=== PATIENT | male | born 1960 | race Hispanic/Latino ===

== ENCOUNTER 2019-08-01 14:34 | Emergency (ER) | payer BC, OTHER ==
[~2019-08-01] VITALS: Ht 167.6 cm; Wt 74.8 kg
--- OUTSIDE RECORDS SUMMARY | 2019-08-01 14:37 | XMS REPORT | Continuity of Care Document ---
Author Author [facility] Organization [facility] Address [address] [place] [address] [place] [id number] Phone Unavailable Care Team Providers Care Wedger Machine Name Role Phone Unavailable Unavailable Problems This patient has no known problems. Allergies, Adverse Reactions, Alerts This patient has no known allergies or adverse reactions. Medications This patient has no known medications. Procedures This patient has no known procedures. Results This patient has no known results.
[2019-08-01] MEDS ORDERED: KETOROLAC TROMETHAMINE 60 MG/2 ML VIAL IM ONE (15:45)
[2019-08-01] MEDS ORDERED: AZITHROMYCIN 250 MG TAB PO ONE (16:00)
[2019-08-01] MEDS ORDERED: AZITHROMYCIN 250 MG TAB ONE (16:11)
--- NOTE | 2019-08-01 16:41 | Diagnostic Imaging Report ---
EXAMINATION: CXR 1 W - HOP INDICATION: Cough. COMPARISON: None FINDINGS: TUBES and LINES: None. LUNGS: Lungs are mildly hyperinflated. There are patchy opacities in the right mid and bilateral lower lung zones. Linear opacities in the right greater than left lower lung zones. PLEURA: No pleural effusion or pneumothorax. HEART AND MEDIASTINUM: The cardiomediastinal silhouette is unremarkable. BONES AND SOFT TISSUES: No acute osseous lesion. Soft tissues are unremarkable. UPPER ABDOMEN: No free air under the diaphragm. IMPRESSION: Findings compatible with pneumonia (including viral pneumonia) in the setting of cough. Recommend follow-up chest radiograph in 6-8 weeks to assess for resolution. Signed by: Dr. Galina Montiel MD on 08/01/2019 4:38 PM
[2019-08-01] MEDS ORDERED: ACETAMINOPHEN 325 MG TAB PO ONE (17:00)
[2019-08-01] MEDS ORDERED: CEFTRIAXONE SOD 1 GM VIAL IM ONE (17:00)
[2019-08-01] MEDS ORDERED: PREDNISONE20 MG PO (18:03)
[2019-08-01] MEDS ORDERED: PROAIR HFA INH8.5 GM PO (18:03)
[2019-08-01] MEDS ORDERED: BROMFED DM COU118 ML PO (18:03)
[2019-08-01] MEDS ORDERED: AZITHROMYCIN500 MG PO (18:03)
[2019-08-01] MEDS ORDERED: ALBUTEROL2.5 MG/3 M NEB (18:03)
[2019-08-01] MEDS ORDERED: CEFDINIR300 MG PO (18:04)
--- NOTE | 2019-08-01 18:05 | Emergency Department Note ---
History of Present Illnes History of Present Illness Chief Complaint: bodyaches History of Present Illness This is a 59 year old male. was doing well prior to this. then 3 days ago bodyaches, cough, f/c, wheezing Historian: Patient Arrival Mode: Car History limited by: condition of the patient (normal) [place] Required: No Onset (how long ago): day(s) (3) Location: n/a Quality: aches Severity: moderate Onset quality: gradual Duration (how long): day(s) (3) Timing of current episode: constant Progression: waxing and waning Chronicity: new Context: recent illness, recent surgery, recent immobilization, recent travel, trauma/injury, new medications, hx of DVT/PE, non-compliance w/ medications Relieving factors: none Exacerbating factors: none Associated symptoms: cough (wheezing) Treatments prior to arrival: none Past Medical/Family History Physician Review I have reviewed the patient's past medical and family history. Any updates have been documented here. Past Medical History Recent Fever: Yes Clinical Suspicion of Infectio: No New/Unexplained Change in Ment: No Past Medical History: None Past Surgical History: None Social History Smoking Cessation: Never Smoker Counseling Performed: No Alcohol Use: Daily Any Illegal Drug Use: No TB Exposure/Symptoms: No Physically hurt or threatened: No Family History Family history of heart diseas: No Other Last Tetanus: UNK Any Pre-Existing Lines (PICC,: No Is patient up to date on immun: Yes Last Flu: NONE Last Pneumovax: NONE Review of Systems Review of Systems Constitutional: as per HPI EENTM: no symptoms Cardiovascular: no symptoms Respiratory: as per HPI Gastrointestinal: no symptoms Genitourinary: no symptoms Musculoskeletal: no symptoms Neurological: no symptoms Psychological: no symptoms Endocrine: no symptoms Hematological/Lymphatic: no symptoms Review of other systems All other systems reviewed and negative. Physical Exam Related Data Allergies: Coded Allergies: No Known Allergies (Unverified , 08/01/19) Triage Vital Signs Vital Signs Date Time Temp Pulse Resp B/P (MAP) Pulse Ox O2 Delivery O2 Flow Rate FiO2 08/01/19 14:52 100.0 94 18 126/75 93 Vital signs reviewed: Yes Physical Exam CONSTITUTIONAL Constitutional: well-developed, well-nourished HENT HENT: normocephalic, atraumatic, oropharynx clear/moist, nose normal HENT L/R: left ext ear normal, right ext ear normal EYES Eyes: PERRL, conjunctivae normal NECK Neck: ROM normal PULMONARY Pulmonary: effort normal, other (forced expiratory wheezes) CARDIOVASCULAR Cardiovascular: regular rhythm, heart sounds normal, capillary refill normal, normal rate GASTROINTESTINAL Abdominal: soft, nontender, bowel sounds normal GENITOURINARY Genitourinary: exam deferred SKIN Skin: warm, dry MUSCULOSKELETAL Musculoskeletal: ROM normal NEUROLOGICAL Neurological: alert, oriented x 3, no gross motor or sensory deficits PSYCHOLOGICAL Psychological: mood/affect normal, judgement normal Results Laboratory Lab results reviewed: Yes (influenza negative, covid +) Imaging Imaging results reviewed: Yes (cxr wnl) Critical Care Time Subsequent provider I assumed direction of critical care for this patient from another provider of my specialty. Assessment & Plan Reassessment Reassessment i was notified by lab that pt was covid + . called the pt at [phone] and left a message to call back so i can give covid results. Assessment & Plan Final Impression: (1) Body aches (2) Pneumonia (3) Reactive airway disease (4) COVID-19 Assessment & Plan albuterol, azithromycin, omnicef, prednisone, bromfed Depart Disposition: HOME, SELF-CARE Last Vital Signs Date Time Temp Pulse Resp B/P (MAP) Pulse Ox O2 Delivery O2 Flow Rate FiO2 08/01/19 14:52 100.0 94 18 126/75 93 Home Meds Active Scripts Cefdinir (OMNICEF) 300 Mg Capsule, 300 MG PO Q12H, #20 CAP Prov:CYNTHIA ORTEGA 08/01/19 Albuterol Sulfate (ALBUTEROL SULFATE) 2.5 Mg/3 Ml Vial.neb, 5 ML NEB Q4HR PRN for COUGH, #120 UNIT 1 Refill prn cough, wheezing, shortness of breath Prov:CYNTHIA ORTEGA 08/01/19 D-Methorphan Hb/P-Epd Hcl/Bpm (BROMFED DM COUGH SYRUP) 118 Ml Syrup, 10 ML PO Q4HR PRN for COUGH, #240 ML PRN COUGH(USE INHALER FIRST), CONGESTION, ALLERGY SYMPTOMS Prov:CYNTHIA ORTEGA 08/01/19 Albuterol Sulf* (PROAIR HFA INHALER*) 8.5 Gm Inh, 2 INH PO Q4HR PRN for COUGH, #1 INH PRN COUGH, WHEEZING, SHORTNESS OF BREATH// DISPENSE WITH SPACER Prov:CYNTHIA ORTEGA 08/01/19 Prednisone (PREDNISONE) 20 Mg Tab, 60 MG PO DAILY, #15 TAB Prov:CYNTHIA ORTEGA 08/01/19 Azithromycin (AZITHROMYCIN) 500 Mg Tablet, 500 MG PO DAILY for 4 Days, #4 TAB Prov:CYNTHIA ORTEGA 08/01/19 Medications in the ED Ketorolac Tromethamine 60 mg ONCE ONCE IM Last administered on 08/01/19at 16:18; Admin Dose 60 MG; Start 08/01/19 at 15:45; Stop 08/01/19 at 16:17; Status DC Ceftriaxone Sodium 1 gm ONCE ONCE IM Last administered on 08/01/19 16:20; Admin Dose 1 GM; Start 08/01/19 at 17:00; Stop 08/01/19 at 17:01; Status DC Azithromycin 500 mg ONCE ONCE PO Last administered on 08/01/19at 16:19; Admin Dose 500 MG; Start 08/01/19 at 16:00; Stop 08/01/19 at 16:01; Status DC Acetaminophen 975 mg ONCE ONCE PO Last administered on 08/01/19 16:19; Admin Dose 975 MG; Start 08/01/19 at 17:00; Stop 08/01/19 at 17:01; Status DC Azithromycin 500 mg STK-MED ONCE .ROUTE ; Start 08/01/19 at 16:11; Stop 08/01/19 at 16:09; Status DC CYNTHIA ORTEGA Aug 01, 2019 18:05
[2019-08-01 18:54] VITALS: BP 104/63
== END 2019-08-01 18:59 | disposition home or self-care (01) ==
LOC: FSED 14:34 → EDBD 14:34 → FSED 18:59
DX: R05 Cough (principal); J18.9 Pneumonia, unspecified organism; U07.1 COVID-19; J45.909 Unspecified asthma, uncomplicated
CPT/HCPCS: 71045; 87400; 87635; 96372; 99283; J0696; J1885